=== PATIENT | male | born 1980 | race Caucasian/White ===

== ENCOUNTER 2017-08-12 15:58 | Emergency (ER) | payer SELFPAY ==
[2017-08-12] MEDS ORDERED: CHLORHEXIDINE GLUCONATE 4 % 15 ML UD TOP ONE (16:11)
[2017-08-12] MEDS ORDERED: LIDOCAINE 1% 10 ML VIAL INJ ONE (16:20)
--- NOTE | 2017-08-12 16:42 | ED.PDOC ---
History of Present Illness - General Chief Complaint: Laceration Time Seen by Provider: 08/12/17 16:34 Source: patient, RN notes reviewed Exam Limitations: no limitations Additional Information: LEFT PALM LACERATION ACCIDENTAL INJURY WHILE HE JUMPING OVER A FENCE IT IS7 CM LONG IRREGULAR DISTAL TO THE DISTAL PALMAR CREASE OF THE LEFT HAND HE HAS NO TENDON INJURY ABLE TO FLEX MTP JOINT AND IP JOINTS WITHOUT ANY DIFFICULTY NO FB NO NEUROVASCULAR DEFICIT NOTICED - History of Present Illness Timing/Duration: 1/2 hour Severity: moderate Improving Factors: nothing Home Medications: Ambulatory Orders Acetamin W/Cod #3 Tab [Tylenol w/CODEINE #3] 1 ea PO Q6HR PRN #40 tab 08/12/17 Sulfa/Trimeth 800/160 (Ds) Tab [Bactrim DS Tab] 1 ea PO Q12HR #20 tab 08/12/17 Review of Systems - Review of Systems Constitutional: States: no symptoms reported EENTM: States: no symptoms reported Respiratory: States: no symptoms reported Cardiology: States: no symptoms reported Gastrointestinal/Abdominal: States: no symptoms reported Genitourinary: States: no symptoms reported Musculoskeletal: States: no symptoms reported Skin: States: see HPI Neurological: States: no symptoms reported Endocrine: States: no symptoms reported Physical Exam - Physical Exam General Appearance: Alert, Comfortable Eye Exam: bilateral normal Ears, Nose, Throat: hearing grossly normal, normal ENT inspection, normal pharynx Neck: non-tender, full range of motion, supple Respiratory: chest non-tender, lungs clear, normal breath sounds, no respiratory distress, no accessory muscle use Cardiovascular/Chest: normal peripheral pulses, regular rate, rhythm, no edema, no gallop, no JVD Gastrointestinal/Abdominal: no organomegaly, no pulsatile mass, abnormal bowel sounds Back Exam: normal inspection, no CVA tenderness, no vertebral tenderness Extremity: normal range of motion, non-tender, normal inspection, no pedal edema , no calf tenderness 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 Copy, Patient Portal Self Enrollment Instructions: DI for Laceration Repair, DI for Laceration Repair -- Complex Suture Diet: resume usual diet Activity: increase activity as tolerated Prescriptions: Acetamin W/Cod #3 Tab [Tylenol w/CODEINE #3] 1 ea PO Q6HR PRN #40 tab PRN Reason: Mild To Moderate Pain Sulfa/Trimeth 800/160 (Ds) Tab [Bactrim DS Tab] 1 ea PO Q12HR #20 tab Home Medications: Ambulatory Orders Acetamin W/Cod #3 Tab [Tylenol w/CODEINE #3] 1 ea PO Q6HR PRN #40 tab 08/12/17 Sulfa/Trimeth 800/160 (Ds) Tab [Bactrim DS Tab] 1 ea PO Q12HR #20 tab 08/12/17
[2017-08-12] MEDS ORDERED: NEOMYCIN-BACITRACIN-POLYMYXIN 0.9 GM UD TOP ONE (17:05)
[2017-08-12 19:57] VITALS: TEMP 98.2
[2017-08-12 20:00] VITALS: BP 141/87; O2SAT 97
== END 2017-08-12 16:40 | disposition home or self-care (01) ==
LOC: ER 15:58
DX: S61.412A Laceration without foreign body of left hand, initial encounter (principal); W26.8XXA Contact with other sharp object(s), not elsewhere classified, initial encounter; Y92.9 Unspecified place or not applicable

== ENCOUNTER 2018-02-22 11:09 | Emergency (ER) | payer OTHER ==
[2018-02-22] MEDS ORDERED: SODIUM CHLORIDE 0.9% 1000ML 1,000 ML ONE (11:16)
[2018-02-22] MEDS ORDERED: diphenhydrAMINE HCL 50 MG/ML VIAL ONE (11:16)
[2018-02-22] MEDS ORDERED: methylPREDNISolone SODIUM SUC 125 MG/2 ML VIAL IV ONE (11:36)
[2018-02-22] MEDS ORDERED: PROMETHAZINE HCL INJ 25 MG/ML VIAL IM ONE (11:36)
[2018-02-22] MEDS ORDERED: MORPHINE SULFATE INJ 10 MG/ML VIAL IV ONE (11:36)
[2018-02-22] MEDS ORDERED: cloNIDine HCL 0.1 MG TAB PO ONE (12:18)
[2018-02-22] MEDS ORDERED: fentaNYL CITRATE INJ 50 MCG/ML AMP IV ONE (12:20)
--- NOTE | 2018-02-22 12:20 | ED.PDOC ---
History of Present Illness - General Chief Complaint: Bite: Animal/Insect/Human Stated Complaint: numerous bee stings Time Seen by Provider: 02/22/18 11:36 Exam Limitations: no limitations - History of Present Illness Initial Comments: Edwar Cardenas 37 y/o male stated he was mowing loan with his riding mower at and he ran over a mound then noticed swarm of bees came out then he was stung on his nape and back as he was running away from it.Called up EMS then was brought her.EMS stated no SOB,no choking sensation or tightening of chest.He was given Benadryl 50 mg IM [address] the way here by EMS.Again denies SOB,chest tightness.Also stingers taken off by the nurse on his arrival here.He stated he is just hurting where he was stung. Timing/Duration: 1-3 hours Severity: moderate Improving Factors: nothing Worsening Factors: nothing Associated Symptoms: other - see hpi Allergies/Adverse Reactions: Allergies NO KNOWN ALLERGY Allergy (Verified 08/12/17 20:00) Home Medications: Ambulatory Orders Acetamin W/Cod #3 Tab [Tylenol w/CODEINE #3] 1 ea PO Q6HR PRN #40 tab 08/12/17 Sulfa/Trimeth 800/160 (Ds) Tab [Bactrim DS Tab] 1 ea PO Q12HR #20 tab 08/12/17 Acetamin W/Cod #3 Tab [Tylenol w/CODEINE #3] 1 ea PO Q6HR PRN #12 tab 02/22/18 Epinephrine [Epipen 2-Parvez] 0.3 mg IJ ONCE PRN #1 ml 02/22/18 predniSONE 20 mg PO DAILY 5 Days #5 tab 02/22/18 Review of Systems - Review of Systems Constitutional: States: no symptoms reported EENTM: States: no symptoms reported Respiratory: States: no symptoms reported Cardiology: States: no symptoms reported Gastrointestinal/Abdominal: States: no symptoms reported Genitourinary: States: no symptoms reported Musculoskeletal: States: no symptoms reported Skin: States: see HPI Neurological: States: no symptoms reported Endocrine: States: no symptoms reported Past Medical History (General) - Patient Medical History Hx Stroke: No Hx Congestive Heart Failure: No Hx Diabetes: No Surgical History: no surgical history - Vaccination History Hx Influenza Vaccination: No Hx Pneumococcal Vaccination: No - Social History Hx Tobacco Use: No Hx Physical Abuse: No Hx Emotional Abuse: No Family Medical History - Family History Father Family History: Unknown Living Status: Still Living Hx Family Hypertension: Yes - mom Physical Exam - Physical Exam General Appearance: Alert, Anxious, Comfortable, No apparent distress Eye Exam: bilateral normal Ears, Nose, Throat: hearing grossly normal, normal ENT inspection, normal pharynx, other - no pharyngeal swelling or drooling noted Neck: non-tender, full range of motion, supple Respiratory: chest non-tender, lungs clear, normal breath sounds, no respiratory distress Cardiovascular/Chest: normal peripheral pulses, regular rate, rhythm, no murmur Peripheral Pulses: radial,right: 2+, radial,left: 2+ Gastrointestinal/Abdominal: normal bowel sounds, non tender, soft, no organomegaly Back Exam: no CVA tenderness, no vertebral tenderness Extremity: no pedal edema, no calf tenderness Neurologic: no motor/sensory deficits, alert, oriented x 3 Skin Exam: normal color, warm/dry Progress - Progress Progress: 02/22/18 12:28 Vital Signs - 24 hr 02/22/18 02/22/18 11:12 11:57 Temperature 100.1 F H Pulse Rate [ 111 H 117 H left brachial] Respiratory 24 20 Rate Blood Pressure 172/122 176/126 [left brachial] O2 Sat by Pulse 97 Oximetry Departure - Departure Clinical Impression: Accidental bee sting, Neck ache Time of Disposition: 14:14 Disposition: Discharge to Home or Self Care Condition: Fair Departure Forms: ED Discharge - Pt. Copy, Patient Portal Self Enrollment Instructions: DI for Insect Bites and Stings Prescriptions: Acetamin W/Cod #3 Tab [Tylenol w/CODEINE #3] 1 ea PO Q6HR PRN #12 tab PRN Reason: Pain Epinephrine [Epipen 2-Parvez] 0.3 mg IJ ONCE PRN #1 ml PRN Reason: anphylaxis predniSONE 20 mg PO DAILY 5 Days #5 tab Home Medications: Ambulatory Orders Acetamin W/Cod #3 Tab [Tylenol w/CODEINE #3] 1 ea PO Q6HR PRN #40 tab 08/12/17 Sulfa/Trimeth 800/160 (Ds) Tab [Bactrim DS Tab] 1 ea PO Q12HR #20 tab 08/12/17 Acetamin W/Cod #3 Tab [Tylenol w/CODEINE #3] 1 ea PO Q6HR PRN #12 tab 02/22/18 Epinephrine [Epipen 2-Parvez] 0.3 mg IJ ONCE PRN #1 ml 02/22/18 predniSONE 20 mg PO DAILY 5 Days #5 tab 02/22/18 Additional Instructions: Return to emergency room as needed
[2018-02-22] MEDS ORDERED: LACTATED RINGERS 1,000 ML IVS ONE (12:49)
[2018-02-22 14:27] VITALS: BP 152/106; TEMP 99; O2SAT 96
== END 2018-02-22 14:27 | disposition home or self-care (01) ==
LOC: ER 11:09
DX: T63.441A Toxic effect of venom of bees, accidental (unintentional), initial encounter (principal); M54.2 Cervicalgia
CPT/HCPCS: J1200; J2270; J2550; J2930; J3010; J7030; J7120

== ENCOUNTER → 2020-03-11 | Outpatient (CLI) | payer SELFPAY | LOC: YCFC.O 16:33 | PROVIDERS: ATTEND Nurse Practitioner Family | DX: R03.0 Elevated blood-pressure reading, without diagnosis of hypertension (principal) ==

== ENCOUNTER → 2020-07-03 | Outpatient (CLI) | payer SELFPAY ==
--- NOTE | 2020-07-03 11:18 | RAD ---
EXAM DESCRIPTION: KUB CLINICAL HISTORY: abdominal pain COMPARISON: None. IMPRESSION: Single AP supine view of the abdomen shows a nonspecific, nonobstructive bowel gas pattern. No abnormal calcifications are seen in the expected location of the kidneys or ureters. Upper abdomen is not included in the [id number]. Mildly increased volume of stool in the right and left colon could represent mild constipation or obstipation. Electronically signed by: Harvey Butler MD 07/03/2020 11:17 AM [facility]
== END ==
LOC: YCFC.O 10:39
PROVIDERS: ATTEND Nurse Practitioner Family
DX: R36.1 Hematospermia (principal); R10.9 Unspecified abdominal pain; R14.3 Flatulence